=== PATIENT | male | born 1945 | race Caucasian/White ===

== ENCOUNTER 2020-01-17 07:28 | Day surgery (SDC) | payer MEDICARE ==
[~2020-01-17 07:28] MED LIST: ACETAMINOPHEN500 M1 PO; LISINOPRIL10 MG PO; LISINOPRIL5 MG PO
[2020-01-17 09:48] VITALS: BP 120/66
== END 2020-01-17 09:59 | disposition home or self-care (01) ==
LOC: ENDO 07:28
PROVIDERS: ATTEND Surgery
PROC: 0DJD8ZZ Inspection of Lower Intestinal Tract, Via Natural or Artificial Opening Endoscopic (ICD-10-PCS; principal; 2020-01-17)
DX: Z12.11 Encounter for screening for malignant neoplasm of colon (principal); K57.30 Diverticulosis of large intestine without perforation or abscess without bleeding; K64.8 Other hemorrhoids; I10 Essential (primary) hypertension; Z11.59 Encounter for screening for other viral diseases

== ENCOUNTER 2021-07-05 08:31 | Emergency (ER) | payer MEDICARE ==
[~2021-07-05] VITALS: Ht 175.3 cm; Wt 66.3 kg
[2021-07-05] MEDS ORDERED: AMLODIPINE BESYL5 MG PO (08:50)
[2021-07-05] MEDS ORDERED: VOLTAREN1%GEL TOP (09:50)
[2021-07-05] MEDS ORDERED: MOTRIN400 MG/TAB PO (09:50)
[2021-07-05 09:53] VITALS: BP 151/70
== END 2021-07-05 10:00 | disposition home or self-care (01) ==
LOC: ED 08:31
DX: M25.512 Pain in left shoulder (principal); I10 Essential (primary) hypertension; I48.92 Unspecified atrial flutter; F17.210 Nicotine dependence, cigarettes, uncomplicated; W20.8XXA Other cause of strike by thrown, projected or falling object, initial encounter; Y92.009 Unspecified place in unspecified non-institutional (private) residence as the place of occurrence of the external cause

== ENCOUNTER 2024-04-29 14:16 | Inpatient (IN) | payer MEDICARE ==
[~2024-04-29] VITALS: Ht 175.3 cm; Wt 60.8 kg
[2024-04-29] VITALS (33 sets, daily range): BP systolic 87–139; BP diastolic 51–88
[~2024-04-29 14:16] MED LIST changes: +AMLODIPINE BESYL5 MG PO; +MELOXICAM15 MG PO; +MOTRIN400 MG/TAB PO; +VOLTAREN1%GEL TOP
--- NOTE | 2024-04-29 14:25 | NUR ---
PT BROUGHT BACK TO ER ROOM 1 VIA WHEELCHAIR, FAMIL AT SIDE, NO DISTRESS NOTED
[2024-04-29] MEDS ORDERED: ONDANSETRON HCl 4 MG/2 ML SDV IM ONE (14:30)
[2024-04-29] MEDS ORDERED: ACETAMINOPHEN 1,000 MG/100 ML VIAL IV ONE ×2 (14:40→14:50)
[2024-04-29] MEDS ORDERED: SODIUM CHLORIDE 0.9% 1,000 ML IV ONE ×2 (14:45→15:50)
[2024-04-29 14:51] LABS: BASO% 0.1 % (0-3); EOS% 0.1 % (0-8); HEMATOCRIT 46.7 % (39.0-50.0); IMMATURE GRANULOCYTES 0.2 % (0.0-5.0); LYMPH% 3.4 % (15-41); MEAN CELL VOLUME 88.4 fL CALC (80.0-100.0); MEAN CORPUSCULAR HGB 28.4 pG CALC (26.0-32.0); MEAN CORPUSCULAR HGB CONC 32.1 g/dL CAL (32.0-36.0); MONO% 5.8 % (2-13); NEUT# 18.89 thou/uL (1.82-7.42); NEUT% 90.4 % (42-76); RED BLOOD COUNT 5.28 mill/uL (4.70-6.10); RED CELL DISTRI WIDTH 13.9 % (11.5-15.5)
[2024-04-29 15:15] LABS: ALBUMIN 4.7 g/dL (3.2-5.0); ALKALINE PHOSPHATASE 74 u/l (38-126); BUN 19 mg/dL (8-23); BUN/CREATININE RATIO 15 (12-20 (CALC)); CHLORIDE 109 mmol/l (95-108); CREATININE 1.3 mg/dL (0.7-1.3); ESTIMATED GFR 57 ML/MIN (>=90 (CALC)); LIPASE 55 u/l (23-300); SGOT/AST 24 u/l (19-48); SODIUM 139 mmol/l (137-146); TOTAL PROTEIN 8.3 g/dL (6.3-8.2)
[2024-04-29 15:19] LABS: ANION GAP 14 (6-22 (CALC)); BILIRUBIN, TOTAL 0.8 mg/dL (0.2-1.3); CARBON DIOXIDE 20 mmol/l (22-30); POTASSIUM 3.9 mmol/l (3.5-5.1)
[2024-04-29] MEDS ORDERED: cefTRIAXone SODIUM 2 GM in SODIUM CHLORIDE 0.9% 100 ML IV ONE (15:25)
--- NOTE | 2024-04-29 16:13 | NUR ---
PT UPDATED ON STATUS, NO NEEDS AT THIS TIME.
[2024-04-29] MEDS ORDERED: IBUPROFEN 800 MG/TAB PO ONE (16:15)
[2024-04-29] MEDS ORDERED: GABAPENTIN300 M2 (16:16)
--- NOTE | 2024-04-29 17:00 | NUR ---
PT PROVIDED WITH WARM BLANKETS.
[2024-04-29 17:12] LABS: URINE BILIRUBIN - DIPSTICK Negative (NEGATIVE); URINE BLOOD DIPSTICK Negative (NEGATIVE); URINE GLUCOSE - DIPSTICK Negative (NEGATIVE); URINE KETONE Negative (NEGATIVE); URINE LEUK ESTERASE Negative (NEGATIVE); URINE NITRITE - DIPSTICK Negative (Negative); URINE PH 5.5 (4.5-8.0); URINE PROTEIN - DIPSTICK Negative (NEG-TRACE); URINE SPECIFIC GRAVITY 1.015
[2024-04-29 17:14] LABS: URINE COLOR Yellow
[2024-04-29] MEDS ORDERED: AZITHROMYCIN 500 MG in SODIUM CHLORIDE 0.9% 250 ML IV ONE (17:55)
--- NOTE | 2024-04-29 18:20 | NUR ---
PT RESTING WITHOUT ANY NEEDS AT THIS TIME. PT UPDATED ON STATUS.
--- NOTE | 2024-04-29 19:00 | NUR ---
RECIEVED REPORT FROM MAHAD BOSTON. PT RESTING IN SEMI-FOWLERS POSITION WITH NO FURTHER QUESTIONS OR CONCERNS AT THSI TIME, PT ABX RUNNING, WILL CONTINUE TO MONITOR, PT AWAITING ALL FURTHER RESULTS/ORDERS.
--- NOTE | 2024-04-29 19:30 | NUR ---
PT ABX CMP, PT UPDATED ON CONTINUOUS PLAN OF CARE WITH NO FURTHER QUESTIONS OR CONCERNS AT THIS TIME, PT VOICES APPRECIATION OF CARE, AWAITING ALL FURTHER RESULTS/ORDERS.
--- NOTE | 2024-04-29 20:30 | NUR ---
PT UPDATED ON CONTINUOUS PLAN OF CARE WITH NO FURTHER QUESTIONS OR CONCERNS AT THIS TIME, PT AWAITING ALL RESULTS AT THIS TIME. WILL CONTINUE TO MONITOR.
--- NOTE | 2024-04-29 21:45 | NUR ---
MD NOTIFIED OF ALL COMPLETED PT'S RESULTS AT THIS TIME, PT UPDATED ON AWAITING ADMISSION AT THIS TIME.
[2024-04-29] MEDS ORDERED: ONDANSETRON HCl 4 MG/2 ML SDV IV PRN (22:00)
[2024-04-29] MEDS ORDERED: MAGNESIUM HYDROXIDE 30 ML UDC PO PRN (22:00)
[2024-04-29] MEDS ORDERED: ACETAMINOPHEN 325 MG/TAB PO PRN (22:00)
[2024-04-29] MEDS ORDERED: SODIUM CHLORIDE 0.9% 1,000 ML IV PRN (22:00)
[2024-04-29] MEDS ORDERED: SODIUM CHLORIDE 0.9% 1,000 ML IV SCH (22:10)
[2024-04-29] MEDS ORDERED: VANCOMYCIN HCL 1 GM in SODIUM CHLORIDE 0.9% 250 ML IV ONE (22:10)
[2024-04-29] MEDS ORDERED: CEFEPIME HYDROCHLORIDE 2 GM in SODIUM CHLORIDE 0.9% 100 ML IV SCH (22:10)
--- NOTE | 2024-04-29 22:10 | NUR ---
REPORT CALLED TO [facility] AT THIS TIME.
--- NOTE | 2024-04-29 22:44 | NUR ---
PT TRANSPORTED TO [facility] [place] AT THIS TIME BY ADDITIONAL NURSE DARVIN VIA W/C.
--- NOTE | 2024-04-29 22:46 | NUR ---
PATIENT ADMITTED TO [facility] [place] VIA WC. ALERT AND ABLE TO MAKE NEEDS KNOWN. WEIGHT OBTAINED FROM STANDING SCALE. PATIENT AMBULATED SELF TO BED IN ROOM. PATIENT ORIENTED TO ROOM, CALL DANIELLE AND SURROUNDINGS. ASSESSMENT COMPLETE. NO DISTRESS NOTED. NON PRODUCTIVE COUGH PRESENT. LUNGS APPEAR CLEAR ON AUSCULTATION AT THIS TIME. COMPLAINED OF PAIN TO RIGHT GROIN MINIMAL AND INTERMITTENT, STATES HES HAD IT FOR ABOUT 3 MONTHS AND HAS HAD SCANS AND SEEN A DR FOR IT. DENIES NEEDING ANYTHING FOR IT AT THIS TIME. PATIENT IS STEADY ON FEET. BED IN LOW POSITION. CALL DANIELLE IN REACH.
--- NOTE | 2024-04-29 23:06 | NUR ---
NOTIFIED OF PHARMACY CALLING WANTING CLARIFICATION DOSE OF VANCO. TO PUT IN ORDERS.
[2024-04-29] MEDS ORDERED: VANCOMYCIN HCL IV ONE (23:10)
[2024-04-29] MEDS ORDERED: SODIUM CHLORIDE 0.9% IV ONE (23:10)
[2024-04-30] MEDS ORDERED: SODIUM CHLORIDE 0.9% IV ONE (00:05)
[2024-04-30] MEDS ORDERED: VANCOMYCIN HCL IV ONE (00:05)
[2024-04-30] MEDS ORDERED: VANCOMYCIN HCL 1 GM in SODIUM CHLORIDE 0.9% 250 ML IV ONE (00:10)
--- NOTE | 2024-04-30 00:35 | NUR ---
PATIENT REMAINS RESTING IN BED WATCHING TV. DENIES NEEDING ANYTHING AT THIS TIME. NO PAIN VOICED. NO DISTRESS NOTED. OCCASIONAL COUGHING HEARD. BED REMAINS IN LOW POSITION. CALL DANIELLE IN REACH.
--- NOTE | 2024-04-30 03:50 | NUR ---
PATIENT REMAINS RESTING IN BED, LAYING ON HIS LEFT SIDE. NO DISTRESS NOTED. DENIES ANY PAIN AT THIS TIME. REMAINS AFEBRILE. BED REMAINS IN LOW POSITION. CALL DANIELLE IN REACH.
[2024-04-30 04:11] VITALS: BP 110/69
[2024-04-30 05:00] LABS: BASO% 0.1 % (0-3); EOS% 0.2 % (0-8); IMMATURE GRANULOCYTES 0.5 % (0.0-5.0); MEAN CORPUSCULAR HGB 28.2 pG CALC (26.0-32.0); MEAN CORPUSCULAR HGB CONC 31.3 g/dL CAL (32.0-36.0); MONO% 10.4 % (2-13); NEUT# 19.85 thou/uL (1.82-7.42); NEUT% 78.8 % (42-76); RED BLOOD COUNT 4.4 mill/uL (4.70-6.10); RED CELL DISTRI WIDTH 14.3 % (11.5-15.5)
[2024-04-30 05:13] LABS: BILIRUBIN, TOTAL 0.8 mg/dL (0.2-1.3); C-REACTIVE PROTEIN 5.6 mg/dL (0-0.9); CHOLESTEROL HDL RATIO 3.4 (<4.4 (CALC)); CREATININE 0.8 mg/dL (0.7-1.3); MAGNESIUM 1.8 mg/dL (1.6-2.3); POTASSIUM 3.8 mmol/l (3.5-5.1)
[2024-04-30 05:18] LABS: HEMATOCRIT 39.6 % (39.0-50.0); HEMOGLOBIN 12.4 g/dl (14.0-18.0)
[2024-04-30 05:19] LABS: ALBUMIN 3.1 g/dL (3.2-5.0); TOTAL PROTEIN 5.8 g/dL (6.3-8.2)
[2024-04-30 07:11] VITALS: BP 110/57
--- NOTE | 2024-04-30 07:14 | NUR ---
CALLED AND UPDATED PROVIDER ON PATIENTS STATUS.
--- NOTE | 2024-04-30 07:33 | NUR ---
SHIFT CHANGE REPORT, PT AWAKE ALERT AND ORIENTED RESTING IN BED, NO C/O DISCOMFORT, STATES HE FEELS GOOD, IVF INFUSING, CALL DANIELLE IN REACH AND BED LOCKED IN LOWEST POSITION.
--- NOTE | 2024-04-30 12:22 | NUR ---
SHOWERED SETTLED BACK IN BED, SPOUSE VISITING.
--- NOTE | 2024-04-30 13:37 | NUR ---
S: Debby Sparks is a 76 M who presents with sepsis. O: VS: BP 110/57 mmHg, P 62 bpm, RR 18 bpm, T 97.7 F W 60.8 kg, HT 69 in, Scr 0.8 mg/dL, CrCl 53.2 ml/min A: Blood culture is pending. P: Patient is on cefepime 2gm iv q12h Vancomycin ordered for pharmacy to dose. Start Vancomycin 1g IV Q24H. Vancomycin trough is drawn before the dose on 05/02/24 @0130. Vancomycin goal trough is between 10-20 mcg/ml. Pharmacy will follow and or advise on antibiotics use as needed.
[2024-04-30 15:33] VITALS: BP 134/62
[2024-04-30 16:34] VITALS: BP 134/62
--- NOTE | 2024-04-30 17:04 | NUR ---
CONDITION REMAINS STABLE WITH NO NEW COMPLAINS.
[2024-04-30 19:18] VITALS: BP 117/63
[2024-04-30 19:30] VITALS: BP 117/63
--- NOTE | 2024-04-30 20:00 | NUR ---
RECEIVED REPORT FROM DAYSHIFT NURSE. PT NOTED SITTING UP IN CHAIR, RM AIR. PT IS A/OX4, DENIES ANY PAIN AT THIS TIME. PT STATES "FEELING FINE." NURSING ASSESSMENT COMPLETED, PT PRESENTS AMB AND IND. IV SITE APPEARS HEALTHY AND INTACT ON, ON SL. VSS. NO S/S OF DISTRESS. EDUCATED PT ON PLAN OF CARE AND MED SCHEDULE. CALL LIGHT WITHIN REACH AND SAFETY PRECAUTIONS IN PLACE.
[2024-04-30] MEDS ORDERED: ENOXAPARIN SODIUM 40 MG/0.4 ML SYR SC SCH (21:00)
--- NOTE | 2024-05-01 | NUR ---
PT IS LAYING IN BED SEMI FOWLERS, RESTING WITH EYES CLOSED. NO S/S OF DISTRESS. CALL LIGHT WITHIN REACH AND SAFETY PRECAUTIONS IN PLACE.
[2024-05-01] MEDS ORDERED: VANCOMYCIN HCL 1 GM in SODIUM CHLORIDE 0.9% 250 ML IV SCH (02:00)
[2024-05-01 02:56] VITALS: BP 119/68
[2024-05-01 03:37] VITALS: BP 119/68
--- NOTE | 2024-05-01 04:00 | NUR ---
PT NOTED LAYING IN BED SUPINE, RESTING COMFORTABLY WITH EYES CLOSED. NO S/S OF DISTRESS. VSS. CALL LIGHT WITHIN REACH AND SAFETY PRECAUTIONS IN PLACE.
[2024-05-01 04:56] LABS: BASO% 0.2 % (0-3); EOS% 1.4 % (0-8); HEMATOCRIT 41.7 % (39.0-50.0); HEMOGLOBIN 13.3 g/dl (14.0-18.0); IMMATURE GRANULOCYTES 0.2 % (0.0-5.0); LYMPH% 17.3 % (15-41); MEAN CELL VOLUME 90.1 fL CALC (80.0-100.0); MEAN CORPUSCULAR HGB 28.7 pG CALC (26.0-32.0); MEAN CORPUSCULAR HGB CONC 31.9 g/dL CAL (32.0-36.0); MONO% 9.5 % (2-13); NEUT# 10.25 thou/uL (1.82-7.42); NEUT% 71.4 % (42-76); RED BLOOD COUNT 4.63 mill/uL (4.70-6.10); RED CELL DISTRI WIDTH 14.3 % (11.5-15.5)
[2024-05-01 05:05] LABS: ALBUMIN 3.3 g/dL (3.2-5.0); BILIRUBIN, TOTAL 0.5 mg/dL (0.2-1.3); CREATININE 0.8 mg/dL (0.7-1.3); MAGNESIUM 1.9 mg/dL (1.6-2.3); POTASSIUM 3.9 mmol/l (3.5-5.1); TOTAL PROTEIN 6.2 g/dL (6.3-8.2)
[2024-05-01 07:19] VITALS: BP 129/64
--- NOTE | 2024-05-01 07:30 | NUR ---
Report received from security shift manager nurse. Patient is resting in bed, denies any pain. A&Ox4, on room air, VS WNL. All needs addressed, call light within reach.
[2024-05-01] MEDS ORDERED: LEVOFLOXACIN750 MG PO (10:53)
--- NOTE | 2024-05-01 12:00 | NUR ---
Patient is sitting in recliner chair, denies any pain. A&Ox4, on room air, VS WNL. All needs addressed, call light within reach.
[2024-05-01 15:21] VITALS: BP 134/99
--- NOTE | 2024-05-01 16:00 | NUR ---
Patient is resting in bed, denies any pain. Patient is A&O to self/place, on 2L NC, VS WNL, arora in place. Family at bedside. All needs addressed, call light within reach.
--- NOTE | 2024-05-01 17:29 | NUR ---
Discharge instructions given. Patient verbalizes understanding of discharge instructions. IV removed. Discharged in stable condition to Home. Patient left unit with spouse, ambulatory. All belongings sent with pt.
== END 2024-05-01 17:30 | disposition home or self-care (01) | DRG 872 ==
LOC: ED 14:16 → ED-I 14:52 → ED 21:45 → MS2 21:46
PROVIDERS: Family Medicine; ADMIT Student in an Organized Health Care Education/Training Program; ATTEND Student in an Organized Health Care Education/Training Program
DX: A41.9 Sepsis, unspecified organism (principal); R65.20 Severe sepsis without septic shock; R09.02 Hypoxemia; I95.9 Hypotension, unspecified; I10 Essential (primary) hypertension; F17.210 Nicotine dependence, cigarettes, uncomplicated; Z20.822 Contact with and (suspected) exposure to COVID-19
CPT/HCPCS: J0131; J0456; J0692; J1650; Q9967